=== PATIENT | female | born 1960 | race Caucasian/White ===

== ENCOUNTER 2020-08-31 17:48 | Outpatient (CLI) | payer MEDICAID, SELFPAY ==
[2020-08-31 13:27] LABS: ALT 35 U/L (14-59); AST 24 U/L (15-37); Albumin 3.6 g/dL (3.4-5.0); Alkaline Phosphatase 97 U/L (46-116); Anion Gap 9.7 mmol/L (3-11); BUN 17 mg/dL (7-18); Bilirubin, Total 0.5 mg/dL (0.2-1.0); CO2 25.3 mmol/L (21.0-32.0); CREATININE 0.88 mg/dL (0.55-1.02); Calcium 9.2 mg/dL (8.5-10.1); Calculated LDL 175 mg/dL (<100); Chloride 106 mmol/L (98-107); Cholesterol 288 mg/dL (<200); Glucose 105 mg/dL (74-106); HDL Cholesterol 72 mg/dL (40-60); Potassium 4.4 mmol/L (3.5-5.1); Sodium 141 mmol/L (136-145); TSH (W/Ref FT4) 1.33 uIU/mL (0.36-3.74); Total Protein 6.8 g/dL (6.4-8.2); Triglyceride 205 mg/dL (<150)
== END 2020-08-31 18:08 ==
PROVIDERS: PCP Nurse Practitioner Family; Visit Provider Family Medicine
DX: R53.83 Other fatigue (principal); R63.4 Abnormal weight loss; R10.11 Right upper quadrant pain; Z00.00 Encounter for general adult medical examination without abnormal findings; F43.21 Adjustment disorder with depressed mood
CPT/HCPCS: 36415; 80053; 80061; 84443

== ENCOUNTER 2020-11-05 01:50 | Outpatient (CLI) | payer MEDICAID, SELFPAY ==
--- NOTE | 2020-11-05 06:45 | DI.RAD_ITS ---
EXAM: XR CHEST 2V PA LATERAL CLINICAL HISTORY: Assess interval resolution 07/2020,F/U PNEUMONIA TECHNIQUE: 2D digital imaging was performed. COMPARISON: No exams were available for comparison FINDINGS: The heart is not enlarged. The lungs are clear and well expanded. No pleural effusion seen. Mediastin al contours appear intact. IMPRESSION: Normal chest. RADIATION DOSE DELIVERED: Total DLP
== END 2020-11-05 02:10 ==
PROVIDERS: PCP Nurse Practitioner Adult Health; Visit Provider Nurse Practitioner Adult Health
DX: Z87.09 Personal history of other diseases of the respiratory system (principal)
CPT/HCPCS: 71046

== ENCOUNTER 2021-03-25 12:47 | Outpatient (CLI) | payer MEDICAID, SELFPAY ==
[2021-03-25 13:05] LABS: Abs Immature Grans 0.03 10^3/uL (0.0-0.06); Absolute Basophil Count 0.14 10^3/uL (0.0-0.2); Absolute Lymphocyte Count 2.45 10^3/uL (1.2-3.4); Absolute Monocyte Count 0.46 10^3/uL (0.1-0.8); Absolute Neutrophil Count 4.51 10^3/uL (1.2-6.7); Basophils % 1.8; Eosinophils % 1.3; HCT 42.9 % (36.0-46.0); HGB 14.2 g/dL (11.2-15.7); Immature Grans % 0.4; Lymphocytes % 31.9; MCH 31.8 pg (27.0-33.0); MCHC 33.1 % (32.0-36.0); MCV 96.2 fL (80-95); MPV 9.2 fL (8.0-11.0); Neutrophils % 58.6; Nucleated RBC 0 %; Platelet Count 400 10^3/uL (130-400); RBC 4.46 10^6/uL (3.93-5.22); RDW 12.6 % (11.7-14.6); RDW-SD 45.1 fL; WBC 7.69 10^3/uL (4.4-10.8)
[2021-03-25 13:17] LABS: Lipase 72 U/L (73-393)
[2021-03-26 15:14] LABS: ALT 21 U/L (14-59); AST 13 U/L (15-37); Alkaline Phosphatase 102 U/L (46-116); Anion Gap -3.5 mmol/L (3-11); BUN 16 mg/dL (7-18); Bilirubin, Total 0.5 mg/dL (0.2-1.0); CO2 29.5 mmol/L (21.0-32.0); Calcium 9.4 mg/dL (8.5-10.1); Chloride 101 mmol/L (98-107); Estimated GFR 56.56 (mL/min/1.73m2); Glucose 123 mg/dL (74-106); Potassium 4.1 mmol/L (3.5-5.1); Sodium 127 mmol/L (136-145); Total Protein 7.3 g/dL (6.4-8.2)
== END 2021-03-25 12:48 | disposition home or self-care (01) ==
LOC: LBO 12:50
PROVIDERS: PCP Nurse Practitioner Adult Health; Visit Provider Nurse Practitioner Family
DX: R10.84 Generalized abdominal pain (principal); Z87.19 Personal history of other diseases of the digestive system
CPT/HCPCS: 36415; 80053; 83690; 85025

== ENCOUNTER 2021-03-31 10:11 | Outpatient (CLI) | payer MEDICAID, SELFPAY ==
[2021-03-31 11:44] LABS: Hemoglobin A1C 5.7 % (<5.7)
[2021-03-31 12:47] LABS: Anion Gap 8.3 mmol/L (3-11); BUN 12 mg/dL (7-18); CO2 28.7 mmol/L (21.0-32.0); CREATININE 0.8 mg/dL (0.55-1.02); Calcium 9.7 mg/dL (8.5-10.1); Calculated LDL 150 mg/dL (<100); Chloride 105 mmol/L (98-107); Cholesterol 235 mg/dL (<200); Glucose 112 mg/dL (74-106); HDL Cholesterol 66 mg/dL (40-60); Potassium 4.8 mmol/L (3.5-5.1); Sodium 142 mmol/L (136-145); TSH (W/Ref FT4) 0.87 uIU/mL (0.36-3.74); Triglyceride 98 mg/dL (<150)
== END 2021-03-31 10:12 | disposition home or self-care (01) ==
LOC: LBO 10:15
PROVIDERS: PCP Nurse Practitioner Adult Health; Visit Provider Nurse Practitioner Adult Health
DX: E87.1 Hypo-osmolality and hyponatremia (principal); E78.00 Pure hypercholesterolemia, unspecified; R73.01 Impaired fasting glucose
CPT/HCPCS: 80048; 80061; 83036; 84443

== ENCOUNTER 2021-04-16 03:40 | Outpatient (CLI) | payer MEDICAID, SELFPAY ==
--- NOTE | 2021-04-16 07:45 | DI.US_ITS ---
Exam(s) US ABDOMEN EXAM: US ABDOMEN CLINICAL HISTORY: r/o hepatobiliary or pancreatic abnormality,ABD PAIN, R10.84,H/O GALLSTONES TECHNIQUE: Ultrasound abdomen performed using standard protocol. COMPARISON: No exams were available for comparison FINDINGS: LIVER: Normal size and echogenicity. No focal liver lesions are seen.. GALLBLADDER: No evidence of cholelithiasis. No evidence of wall thickening. No pericholecystic fluid identified. GILMORE'S SIGN: Negative. BILIARY SYSTEM: No intrahepatic or extrahepatic biliary ductal dilation. KIDNEYS: Kidneys are symmetric in size. No evidence of renal calculi. No evidence of hydronephrosis. No renal mass or cyst identified. PANCREAS: Normal where visualized. SPLEEN: Not enlarged. ABDOMINAL AORTA AND IVC: Visualized portions normal caliber. ASCITES: None seen. IMPRESSION: Normal sonographic appearance of the upper abdomen. DATA REPOSITORY:
== END 2021-04-16 04:00 ==
PROVIDERS: PCP Nurse Practitioner Adult Health; Visit Provider Nurse Practitioner Family
DX: R10.84 Generalized abdominal pain (principal); Z87.19 Personal history of other diseases of the digestive system
CPT/HCPCS: 76700

== ENCOUNTER 2023-03-15 17:52 | Outpatient (REF) | payer MEDICAID, SELFPAY ==
[2023-03-15 19:49] LABS: Bilirubin Negative (Negative); Blood Negative (Negative); Clarity Turbid (Clear); Glucose Negative (Negative); Ketones Negative (Negative); Leukocyte Esterase Negative (Negative); Nitrite Negative (Negative); Specific Gravity >= 1.030 (1.005-1.025); Urobilinogen 0.2 mg/dL (Up to 0.2)
== END 2023-03-15 17:53 | disposition home or self-care (01) ==
LOC: LBN 17:52
PROVIDERS: PCP Nurse Practitioner Adult Health; Visit Provider Nurse Practitioner Adult Health
DX: R31.29 Other microscopic hematuria (principal)
CPT/HCPCS: 81003

== ENCOUNTER 2023-03-24 02:14 | Outpatient (CLI) | payer MEDICAID, SELFPAY ==
--- OUTSIDE RECORDS SUMMARY | 2023-03-24 02:15 | XMS_ITS | CCD ---
Author Name Unknown Address [address] [place] [address] [id number] Organization Unknown Address [address] [place] [address] [id number] Care Team Providers Care Farm Contractor Buyer Name Role Phone SUZANNE MARIN Attending Physician [phone] SUZANNE MARIN Rounding (Secondary) Physician [phone] Vital Signs Unknown or Not Available. Allergies Allergy Code Allergy Type Reaction Status CONTRAST MEDIA, IODINE RELATED 0 Drug allergy Galilea phylaxis Active PENICILLIN 0 Drug allergy NAUSEA/VOMITING Active SHELLFISH 0 Food allergy Anaphylaxis Active LATEX [id number] Allergy to substance Hives; RASH Act van Procedures Unknown or Not Available. History of Immunizations Unknown or Not Available. Problems Unknown or Not Available. Results Unknown or Not Available. Active Medications Unknown or Not Available. Medications Administered During Visit Unknown or Not Available. Encounters Encounter Diagnosis Diagnosis Code Start Date Other fracture of upper and lower end of right fibula, subsequent encounter for closed fracture with routine healing [id number] 12/29/2021 Social History Smoking Status Code Start Date End Date Never smoker [id number] Patient Decision Aids Unknown or Not Available. Discharge Instructions You were admitted to [facility] on 12/29/2021 13:09 with a principal diagnosis of Other fracture of upper and lower end of right fibula, subsequent encounter for closed fracture with routine healing You were discharged from [facility] on 12/29/2021 00:00 Should you have any questions prior to discharge, please contact a member of your healthcare team. If you have left the hospital and have any questions, please contact your primary care physician. Chief Complaint and Reason For Visit Unknown or Not Available. Function Status Unknown or Not Available. Plan of Care Unknown or Not Available. Referral/Transition of Care Unknown or Not Available.
--- OUTSIDE RECORDS SUMMARY | 2023-03-24 02:15 | XMS_ITS | CCD ---
Author Name Unknown Address [address] [place] [address] [phone] Organization Unknown Address [address] [place] [address] [phone] Care Team Providers Care Tank Truck Mechanic Name Role Phone UNLISTED REQUESTED, PROVIDER - Attending Physici an 0 Vital Signs Unknown or Not Available. Allergies Allergy Code Allergy Type Reaction Status CONTRAST MEDIA, IODINE RELATED 0 Drug allergy Galilea phylaxis Active PENICILLIN 0 Drug allergy NAUSEA/VOMITING Active SHELLFISH 0 Food allergy Anaphylaxis Active LATEX 9288086 Allergy to substance Hives; RASH Act van Procedures Unknown or Not Available. History of Immunizations Unknown or Not Available. Problems Unknown or Not Available. Results URINALYSIS WITH REFLEX CULT IF POSITIVE* - Collect Date/Time: 12/29/2021 12:12 Test Name Code Test Result Test Units Test Ref Rang e COLLECTION MODE: CLEAN CATCH N/A Color 5778-6 YELLOW N/A yellow Appearance 5767-9 CLEAR N/A clear Glucose urine 10280-2 NEGATIVE N/A negative mg /dl Bilirubin 5770-3 NEGATIVE N/A negative Ketones 2514-8 NEGATIVE N/A negative mg/dl Spec gravity 5811-5 >=1.030 N/A 1.003 - 1.03 0 pH urine 2756-5 5.0 N/A 5.0 - 7.0 Protein 52432-7 NEGATIVE N/A negative mg/dl Urobilinogen 88394-1 0.2 N/A <or= 1 EU/dl Nitrite. 5802-4 NEGATIVE N/A negative Blood 5794-3 NEGATIVE N/A negative Leukocytes. NEGATIVE N/A negative MICROSCOPIC NOT INDICAT N/A Active Medications Unknown or Not Available. Medications Administered During Visit Unknown or Not Available. Encounters Encounter Diagnosis Diagnosis Code Start Date Dysuria [id number] 12/29/2021 Social History Smoking Status Code Start Date End Date Never smoker [id number] Patient Decision Aids Unknown or Not Available. Discharge Instructions You were admitted to [facility] on 12/29/2021 12:04 with a principal diagnosis of Dysuria You had the following tests done:URINALYSIS WITH REFLEX CULT IF POSITIVE* You were discharged from [facility] on 12/29/2021 12:04 Should you have any questions prior to [...]
--- OUTSIDE RECORDS SUMMARY | 2023-03-24 02:16 | XMS_ITS | CCD ---
Author Name Unknown Address [address] [place] [address] [id number] Organization Unknown Address [address] [place] [address] [phone] Care Team Providers Care Nipple Threader Name Role Phone SUZANNE MARIN Attending Physician [phone] SUZANNE MARIN Rounding (Secondary) Physician [phone] Vital Signs Unknown or Not Available. Allergies Allergy Code Allergy Type Reaction Status CONTRAST MEDIA, IODINE RELATED 0 Drug allergy Active PENICILLIN 0 Drug allergy Active SHELLFISH 0 Food allergy Active Procedures Unknown or Not Available. History of Immunizations Unknown or Not Available. Problems Unknown or Not Available. Results Unknown or Not Available. Active Medications Unknown or Not Available. Medications Administered During Visit Unknown or Not Available. Encounters Encounter Diagnosis Diagnosis Code Start Date Other fracture of upper and lower end of right fibula, initial encounter for closed fracture [id number] 12/07/2021 Social History Smoking Status Code Start Date End Date Never smoker [id number] Patient Decision Aids Unknown or Not Available. Discharge Instructions You were admitted to [facility] on 12/07/2021 10:46 with a principal diagnosis of Other fracture of upper and lower end of right fibula, initial encounter for closed fracture You were discharged from [facility] on 12/07/2021 00:00 Should you have any questions prior [...]
--- OUTSIDE RECORDS SUMMARY | 2023-03-24 02:16 | XMS_ITS | CCD ---
Author Name Unknown Address [address] [place] [address] [id number] Organization Unknown Address [address] [place] [address] [phone] Care Team Providers Care Heavy Equipment Mechanic Name Role Phone SUZANNE MARIN Attending Physician [phone] SUZANNE MARIN Rounding (Secondary) Physician [phone] Vital Signs Unknown or Not Available. Allergies Allergy Code Allergy Type Reaction Status CONTRAST MEDIA, IODINE RELATED 0 Drug allergy Galilea phylaxis Active PENICILLIN 0 Drug allergy NAUSEA/VOMITING Active SHELLFISH 0 Food allergy Anaphylaxis Active LATEX 4558654 Allergy to substance Hives; RASH Act van [...] encounter for closed fracture with routine healing [id number] 01/25/2022 Social History Smoking Status Code Start Date End Date Never smoker [id number] Patient Decision Aids Unknown or Not Available. Discharge Instructions You were admitted to [facility] on 01/25/2022 14:55 with a principal diagnosis of Other fracture of upper and lower end of right fibula, subsequent encounter for closed fracture with routine healing You were discharged from [facility] on 01/25/2022 00:00 Should you have any questions prior [...]
--- OUTSIDE RECORDS SUMMARY | 2023-03-24 02:16 | XMS_ITS | CCD ---
Author Name Unknown Address [address] [place] [address] [id number] Organization Unknown Address [address] [place] [address] [phone] Care Team Providers Care Karate Black Belt Name Role Phone SUZANNE MARIN Attending Physician [phone] Vital Signs Unknown or Not Available. Allergies Allergy Code Allergy Type Reaction Status CONTRAST MEDIA, IODINE RELATED 0 Drug allergy Active PENICILLIN 0 Drug allergy Active SHELLFISH 0 Food allergy Active Procedures Unknown or Not Available. History of Immunizations Unknown or Not Available. Problems Unknown or Not Available. Results AMAURYMICHELE ESPARZA RHEONIX* - Wil ect Date/Time: 12/11/2021 11:04 Test Name Code Test Result Test Units Test Ref Rang e Tier- 97723-3 PRE-OP N/A SARS COV2 RNA: 93464-9 NEGATIVE N/A REFERENCE RANGE: NEGAT Active Medications Unknown or Not Available. Medications Administered During Visit Unknown or Not Available. Encounters Encounter Diagnosis Diagnosis Code Start Date Pre-surgery testing [id number] 12/11/2021 Social History Smoking Status Code Start Date End Date Never smoker [id number] Patient Decision Aids Unknown or Not Available. Discharge Instructions You were admitted to [facility] on 12/11/2021 07:12 with a principal diagnosis of Encounter for preprocedural laboratory examination You had the following tests done:AMAURY COVID RHEONIX* You were discharged from [facility] on 12/11/2021 07:12 Should you have any questions prior to [...]
--- OUTSIDE RECORDS SUMMARY | 2023-03-24 02:16 | XMS_ITS | CCD ---
Author Name Unknown Address [address] [place] [address] [id number] Organization Unknown Address [address] [place] [address] [phone] Care Team Providers Care Motor And Controls Tester Name Role Phone BRENNEN BEASLEY Attending Physician [phone] KT DUARTE Er Physician [phone] KATHY Clifton Registered Nurse [phone] Vital Signs Vital Sign Value Unit Date/Time Recent/Initial ? BMI (Body Mass Index) 33.96 kg/m^2 12/06/2021 20: 20 Initial VS Weight Measured 230 lbs 12/06/2021 20:20 Ini tial VS Height 69 in 12/06/2021 20:20 Initial VS BSA (Body Surface Area) 2.25 m^2 12/06/2021 2 0:20 Initial VS BP Systolic 147 mmHg 12/06/2021 20:20 Initial VS BP Diastolic 84 mmHg 12/06/2021 20:20 Initia l VS Respiratory Rate 20 bpm 12/06/2021 20:20 In itial VS Heart Rate 98 bpm 12/06/2021 20:20 Initial VS O2 % BldC Oximetry 96 % 12/06/2021 20:20 Initial VS Body Temperature 37.1 degrees 12/06/2021 20:20 In itial VS Allergies Allergy Code Allergy Type Reaction Status CONTRAST MEDIA, IODINE RELATED 0 Drug allergy Active PENICILLIN 0 Drug allergy Active SHELLFISH 0 Food allergy Active Procedures Unknown or Not Available. History of Immunizations Unknown or Not Available. Problems Unknown or Not Available. Results Unknown or Not Available. Active Medications Medications Administered During Visit Medication Dose Units Frequency Route Date/Time of Last Dose KETOROLAC INJ SDV: 30MG/1ML 15 MG X1 IV P 12/06/2021 21:15 Encounters Encounter Diagnosis Diagnosis Code Start Date Other fracture of upper and lower end of right fibula, initial encounter for closed fracture [id number] 12/06/2021 Social History Smoking Status Code Start Date End Date Never smoker [id number] Patient Decision Aids Unknown or Not Available. Discharge Instructions You were admitted to [facility] on 12/06/2021 19:46 with a principal diagnosis of Other fracture of upper and lower end of right fibula, initial encounter for closed fracture You were discharged from [facility] on 12/06/2021 22:01 Should you have any questions prior to discharge, please contact a member of your healthcare team. If you have left the hospital and have any questions, please contact your primary care physician. Chief Complaint and Reason For Visit Chief Complaint Date of Onset ANKLE INJURY Function Status Unknown or Not Available. Plan of Care Unknown or Not Available. Referral/Transition of Care Unknown or Not Available.
--- OUTSIDE RECORDS SUMMARY | 2023-03-24 02:16 | XMS_ITS | CCD ---
Author Name Unknown Address [address] [place] [address] [phone] Organization Unknown Address [address] [place] [address] [phone] Care Team Providers Care Maintenance Apprentice Name Role Phone SUZANNE MARIN Attending Physician [phone] SUZANNE MARIN Rounding (Secondary) Physician [phone] Vital Signs Unknown or Not Available. Allergies Allergy Code Allergy Type Reaction Status CONTRAST MEDIA, IODINE RELATED 0 Drug allergy Galilea phylaxis Active PENICILLIN 0 Drug allergy NAUSEA/VOMITING Active SHELLFISH 0 Food allergy Anaphylaxis Active LATEX 0432587 Allergy to substance Hives; RASH Act van Procedures Unknown or Not Available. History of Immunizations Unknown or Not Available. Problems Unknown or Not Available. Results Unknown or Not Available. Active Medications Unknown or Not Available. Medications Administered During Visit Unknown or Not Available. Encounters Encounter Diagnosis Diagnosis Code Start Date Pain due to internal prosthetic device [id number] 06/07/2022 Social History Smoking Status Code Start Date End Date Never smoker [id number] Patient Decision Aids Unknown or Not Available. Discharge Instructions You were admitted to on 06/07/2022 15:27 with a principal diagnosis of Pain due to internal orthopedic prosthetic devices, implants and grafts, initial encounter You were discharged from on 06/07/2022 00:00 Should you have any questions prior [...]
--- OUTSIDE RECORDS SUMMARY | 2023-03-24 02:16 | XMS_ITS | CCD ---
Author Name Unknown Address [address] [place] [address] [phone] Organization Unknown Address [address] [place] [address] [phone] Care Team Providers Care Roll Capper Name Role Phone SUZANNE MARIN Attending Physician [phone] Vital Signs Unknown or Not Available. Allergies Allergy Code Allergy Type Reaction Status CONTRAST MEDIA, IODINE RELATED 0 Drug allergy Galilea phylaxis Active PENICILLIN 0 Drug allergy NAUSEA/VOMITING Active SHELLFISH 0 Food allergy Anaphylaxis Active LATEX 7861513 Allergy to substance Hives; RASH Act van Procedures Unknown or Not Available. History of Immunizations Unknown or Not Available. Problems Unknown or Not Available. Results Unknown or Not Available. Active Medications Unknown or Not Available. Medications Administered During Visit Unknown or Not Available. Encounters Encounter Diagnosis Diagnosis Code Start Date Other fracture of right lowe r leg, subsequent encounter for closed fracture with routine healing [id number] 01/17/2022 Social History Smoking Status Code Start Date End Date Never smoker [id number] Patient Decision Aids Unknown or Not Available. Discharge Instructions You were admitted to [facility] on 01/17/2022 12:40 with a principal diagnosis of Other fracture of right lower leg, subsequent encounter for closed fracture with routine healing You were discharged from [facility] on 04/13/2022 10:17 Should you have any questions prior to [...]
--- OUTSIDE RECORDS SUMMARY | 2023-03-24 02:16 | XMS_ITS | CCD ---
Author Name Unknown Address [address] [place] [address] [id number] Organization Unknown Address [address] [place] [address] [phone] Care Team Providers Care Associate Consulting Engineer Name Role Phone SUZANNE MARIN Attending Physician [phone] SUZANNE MARIN Rounding (Secondary) Physician [phone] Vital Signs Unknown or Not Available. Allergies Allergy Code Allergy Type Reaction Status CONTRAST MEDIA, IODINE RELATED 0 Drug allergy Galilea phylaxis Active PENICILLIN 0 Drug allergy NAUSEA/VOMITING Active SHELLFISH 0 Food allergy Anaphylaxis Active LATEX 0379942 Allergy to substance Hives; RASH Act van Procedures Unknown or Not Available. History of Immunizations Unknown or Not Available. Problems Unknown or Not Available. Results Unknown or Not Available. Active Medications Unknown or Not Available. Medications Administered During Visit Unknown or Not Available. Encounters Encounter Diagnosis Diagnosis Code Start Date Pain due to internal prosthetic device [id number] 01/03/2023 Social History Smoking Status Code Start Date End Date Never smoker [id number] Patient Decision Aids Unknown or Not Available. Discharge Instructions You were admitted to [facility] on 01/03/2023 10:04 with a principal diagnosis of Pain due to internal orthopedic prosthetic devices, implants and grafts, subsequent encounter You were discharged from [facility] on 01/03/2023 00:00 Should you have any questions prior [...]
--- OUTSIDE RECORDS SUMMARY | 2023-03-24 02:17 | XMS_ITS | CCD ---
Author Name Unknown Address [address] [place] [address] [id number] Organization Unknown Address [address] [place] [address] [phone] Care Team Providers Care Tarper Name Role Phone SUZANNE MARIN Attending Physician [phone] Vital Signs Unknown or Not Available. Allergies Allergy Code Allergy Type Reaction Status CONTRAST MEDIA, IODINE RELATED 0 Drug allergy Galilea phylaxis Active PENICILLIN 0 Drug allergy NAUSEA/VOMITING Active SHELLFISH 0 Food allergy Anaphylaxis Active LATEX 7176370 Allergy to substance Hives; RASH Act van [...] right fibula, initial encounter for closed fracture [id number] 12/17/2021 Social History Smoking Status Code Start Date End Date Never smoker [id number] Patient Decision Aids Unknown or Not Available. Discharge Instructions You were admitted to [facility] on 12/17/2021 05:32 with a principal diagnosis of Other fracture of upper and lower end of right fibula, initial encounter for closed fracture You were discharged from [facility] on 12/17/2021 05:33 Should you have any questions prior to [...]
[2023-03-24 11:50] LABS: Anion Gap 5.1 mmol/L (3-11); BUN 11 mg/dL (7-18); CO2 30.9 mmol/L (21.0-32.0); Calculated LDL 117 mg/dL (<100); Chloride 105 mmol/L (98-107); Cholesterol 206 mg/dL (<200); Glucose 100 mg/dL (74-106); HDL Cholesterol 68 mg/dL (40-60); Potassium 4.1 mmol/L (3.5-5.1); Sodium 141 mmol/L (136-145); Triglyceride 105 mg/dL (<150)
[2023-03-24 12:25] LABS: Hemoglobin A1C 5.6 % (<5.7)
== END 2023-03-24 02:15 | disposition home or self-care (01) ==
LOC: LBO 02:14
PROVIDERS: PCP Nurse Practitioner Adult Health; Visit Provider Nurse Practitioner Adult Health
DX: E78.00 Pure hypercholesterolemia, unspecified (principal); R73.03 Prediabetes
CPT/HCPCS: 36415; 80048; 80061; 83036

== ENCOUNTER 2023-05-01 10:23 | Outpatient (CLI) | payer OTHER, SELFPAY ==
--- NOTE | 2023-05-01 12:19 | DI.RAD_ITS ---
Exam(s) XR ANKLE RT COMPLETE EXAM: XR ANKLE RT COMPLETE CLINICAL HISTORY: F/U FRACTURE 2021. TECHNIQUE: 2D digital imaging was performed. COMPARISON: CR XR LEG RT 2V* from 12/06/2021 DX XR ANKLE RT 3V* from 12/07/2021 FINDINGS: 3 views There has been interval open reduction internal fixation with placement of a lateral fixation plate a cross the oblique fibular fracture site and there has been healing at the fracture site. There is al so a horizontal intraosseous channel with securing plate over the cortex of the medial metaphysis of the distal tibia. Talar dome appears unremarkable. There is no widening of the mortise. No evidence of osteomyelitis. No hardware loosening. Tibiotalar and subtalar joints appear unremarkable. Small inferior calcane al spur noted. IMPRESSION: Satisfactory appearance. DATA REPOSITORY: RADIATION DOSE DELIVERED:
== END 2023-05-01 10:24 | disposition home or self-care (01) ==
PROVIDERS: PCP Nurse Practitioner Adult Health; Referring Provider Nurse Practitioner Adult Health; Visit Provider Student in an Organized Health Care Education/Training Program
DX: S82.401D Unspecified fracture of shaft of right fibula, subsequent encounter for closed fracture with routine healing (principal); X58.XXXD Exposure to other specified factors, subsequent encounter
CPT/HCPCS: 73610